=== PATIENT | male | born 1940 | race Caucasian/White ===

== ENCOUNTER 2016-11-20 05:23 | Inpatient (IN) | payer OTHER ==
[~2016-11-20] VITALS: Ht 175.3 cm; Wt 90.7 kg
[~2016-11-20 05:23] MED LIST: AMLODIPINE BES2.5 MG PO; ATENOLOL25 MG PO; ATORVASTATIN CA80 MG PO; HYDROCHLOROTH12.5 M3 PO; IRON325 M1 PO; LISINOPRIL20 MG PO; LITE COAT ASPI325 M1 PO; OMEPRAZOLE20 MG PO
[2016-11-20 06:04] VITALS: BP 131/65
[2016-11-20 10:10] LABS: HEMATOCRIT 40.2 % (38.0-50.0); MCV 95.7 FL (86-99)
[2016-11-20 19:54] VITALS: BP 134/69
[2016-11-21 00:11] VITALS: BP 119/59
[2016-11-21 03:44] VITALS: BP 122/60
[2016-11-21 04:09] VITALS: BP 122/57
[2016-11-21 06:21] LABS: HEMATOCRIT 36.4 % (38.0-50.0); MCV 96.6 FL (86-99)
[2016-11-21 06:46] LABS: ANION GAP 9 MEQ/L (2-14); CHLORIDE 104 MEQ/L (99-109); GFR ESTIMATE (CALCULATED) 45 mL/min/; GLUCOSE 142 mg/dL (70-99); POTASSIUM 4.1 MEQ/L (3.7-5.4); SAMPLE HEMOLYSIS CHECK 0; SAMPLE ICTERIC CHECK 0; SAMPLE LIPEMIA CHECK 0; SODIUM 139 MEQ/L (136-147); UREA NITROGEN (BUN) 19 mg/dL (9-23)
[2016-11-21 08:02] VITALS: BP 137/62
[2016-11-21 15:33] VITALS: BP 114/60
[2016-11-21 16:44] LABS: ADD MIUA? NO; BILIRUBIN NEGATIVE; BLOOD NEGATIVE; COLOR YELLOW ((YELLOW)); GLUCOSE (STRIP) NEGATIVE; KETONES NEGATIVE; LEUKOCYTES NEGATIVE; NITRITE NEGATIVE; PROTEIN (STRIP) NEGATIVE; SPECIFIC GRAVITY 1.019 (1.000-1.030); UROBILINOGEN 0.2 MG/DL (0.2-1.0)
[2016-11-21 23:35] VITALS: BP 164/80
[2016-11-22 07:15] VITALS: BP 158/74
[2016-11-22] MEDS ORDERED: LOVENOX30 MG/0.3 SC (08:52)
[2016-11-22] MEDS ORDERED: DOCUSATE SODIU100 MG PO (08:53)
[2016-11-22] MEDS ORDERED: LIDOCAINE700 MG TD (08:53)
[2016-11-22] MEDS ORDERED: OXYCODONE HCL5 MG PO (08:53)
== END 2016-11-22 13:56 | disposition home health service (06) | DRG 470 ==
LOC: 2SOUTH 05:23 → 3EAST 05:23 → 2SOUTH 09:13 → 3EAST 16:19
PROVIDERS: Orthopaedic Surgery; Physician Assistant
PROC: 0SR904Z Replacement of Right Hip Joint with Ceramic on Polyethylene Synthetic Substitute, Open Approach (ICD-10-PCS; principal; 2016-11-20)
DX: M16.11 Unilateral primary osteoarthritis, right hip (principal); I10 Essential (primary) hypertension; I25.10 Atherosclerotic heart disease of native coronary artery without angina pectoris; K21.9 Gastro-esophageal reflux disease without esophagitis; Z95.5 Presence of coronary angioplasty implant and graft; Z87.891 Personal history of nicotine dependence
CPT/HCPCS: 80048; 81003; 85014; 85018; 85347; J0690; J1650; J1885; J2250; J2405; J7040; J7050; J7120; S0020